=== PATIENT | male | born 1940 | race American Indian/Alaskan Native ===

== ENCOUNTER 2017-08-26 14:58 | Outpatient (CLI) | payer MEDICARE ==
--- NOTE | 2017-08-26 17:35 | Cat Scan Report ---
FINAL REPORT EXAM: CT CHEST WO CON HISTORY: PULMONARY NODULE . for follow-up TECHNIQUE: Standard unenhanced CT of the chest at 2.5 mm axial increments. Coronal and sagittal reconstruction was also obtained. PRIORS: CT a/P 04/12/2016 FINDINGS: There is a tiny 7 mm uncalcified nodule in the posterior left costophrenic angle, stable. It is associated with a linear area of fibrosis and may be a fibrotic nodule. No other pulmonary nodules are seen. Extensive emphysematous bullous changes are present in the upper lobes anteriorly and medially, left worse than right. Interstitial linear fibrotic changes are present in each lung base posteriorly. There is no evidence for consolidation, vascular congestion, pleural effusion, or pneumothorax. There is no evidence for mediastinal, hilar, or axillary adenopathy. The esophagus is collapsed. The trachea is midline. Coronary artery calcification and atherosclerotic calcification is seen. Cardiac size and aorta size are normal. Images through the lung bases include upper abdomen which show no abnormality of the visualized abdominal viscera. Bony structures show no focal abnormalities. No evidence for bony fracture is seen. IMPRESSION: 1. no acute abnormality identified in the chest. 2. Stable 7 mm nodule in the posterior left costophrenic angle. This is associated with linear fibrosis and may be a fibrotic nodule. Continued CT follow-up in 9 months is suggested to confirm stability as per Fleischner criteria. Then, if the patient is a high risk patient, a follow-up CT an additional 12 months could be obtained at that time.
== END 2017-08-26 14:59 | disposition home or self-care (01) ==
LOC: CT 14:58
PROVIDERS: ATTEND Specialist
DX: J44.9 Chronic obstructive pulmonary disease, unspecified (principal); R91.1 Solitary pulmonary nodule; I70.0 Atherosclerosis of aorta; I25.10 Atherosclerotic heart disease of native coronary artery without angina pectoris
CPT/HCPCS: 71250

== ENCOUNTER 2017-09-18 08:04 | Outpatient (CLI) | payer MEDICARE ==
--- NOTE | 2017-09-18 14:25 | Fluoroscopy Report ---
Modified barium swallow: Imaging obtained in the lateral projection while ingesting different opaque materials given by speech therapy. Silent aspiration identified with thin liquid and symptomatic aspiration with nectar. Persistent small amount of residual material in the esophagus just proximal to the cords.
== END 2017-09-18 08:05 | disposition home or self-care (01) ==
LOC: PT 08:04
PROVIDERS: ATTEND Internal Medicine Critical Care Medicine
DX: R13.10 Dysphagia, unspecified (principal); I63.9 Cerebral infarction, unspecified
CPT/HCPCS: 74230